=== PATIENT | male | born 1990 | race Caucasian/White ===

== ENCOUNTER 2017-07-16 08:55 | Observation (INO) | payer OTHER ==
[~2017-07-16] VITALS: Ht 177.8 cm; Wt 135.6 kg
[2017-07-16] MEDS ORDERED: SULF1TAB35 PO (09:26)
[2017-07-16] MEDS ORDERED: IBUP-30 PO (09:26)
[2017-07-16] MEDS ORDERED: LACTATED RINGERS 1,000 ML IV SCH (09:30)
[2017-07-16 09:34] LABS: MEAN PLATELET VOLUME 10.5 FL (7.4-10.4); RED BLOOD COUNT 5.24 10^6/uL (4.35-5.85); RED CELL DISTRIBUTION WIDTH 12.3 % (10.0-14.5); WHITE BLOOD COUNT 10.7 10^3/uL (4.3-11.0)
[2017-07-16] MEDS: fentaNYL INJECTION 100 MCG/2 ML AMP IVP PRN ×3 (09:47→17:21)
[2017-07-16 09:53] VITALS: BP 154/94
[2017-07-16] MEDS ORDERED: BUP/EPI 0.5% 1:200,000 (MARCAINE) 10ML VIAL IJ ONE ×2 (11:33→12:19)
[2017-07-16] MEDS ORDERED: BUPIVACAINE 0.5% 30 ML (SENSORCAINE) VIAL ONE (11:34)
[2017-07-16] MEDS ORDERED: BUPIVACAINE 0.25% 30 ML (SENSORCAINE) VIAL ONE (11:35)
[2017-07-16 12:00] VITALS: BP 162/86
--- NOTE | 2017-07-16 12:20 | Progress Note-Pre Operative ---
Pre-Operative Progress Note H&P Reviewed The H&P was reviewed, patient examined and no changes noted. Date Seen by Provider: Jul 16, 2017 Time Seen by Provider: 11:02 Date H&P Reviewed: Jul 16, 2017 Time H&P Reviewed: 12:20 Pre-Operative Diagnosis: pilonidal abscess NATALEE HUERTA MD Jul 16, 2017 12:20 pm
--- NOTE | 2017-07-16 12:20 | History & Physicial ---
History of Present Illness History of Present Illness Reason for visit/HPI pain and swelling around the cleft of 3 days' duration. Date of Admission Jul 16, 2017 at 8:55 am Date Seen by Provider: Jul 16, 2017 Time Seen by Provider: 11:05 I consulted on this patient on 07/16/17 12:18 Attending Physician Natalee Huerta MD Admitting [facility] Consult Allergies and Home Medications Allergies Coded Allergies: ketorolac (Unverified Allergy, Unknown, 01/21/16) levofloxacin (Unverified Allergy, Unknown, 01/21/16) ondansetron (Unverified Allergy, Unknown, 01/21/16) Home Medications Ibuprofen 200 Mg Tablet, 400-800 MG PO TID PRN for PAIN-MILD, (Reported) Sulfamethoxazole/Trimethoprim 1 Each Tablet, 1 TAB PO BID, (Reported) 10 DAY SUPPLY FILLED 07-14-17 Past [id number]-Lhwsnu Hx Patient Social History Marrital Status: single Employed/Student: employed Alcohol Use: Rarely Uses Number of Drinks Today: 0 Recreational Drug Use: No Smoking Status: Never a Smoker Physical Abuse Screen: No Sexual Abuse: No Recent Foreign Travel: No Contact w/other who traveled: No Recent Hopitalizations: No Recent Infectious Disease Expo: No Immunizations Up To Date Tetanus Booster (TDap): Unknown Seasonal Allergies Seasonal Allergies: No Surgeries Abdominal, Appendectomy, Orthopedic Respiratory No Cardiovascular No Neurological No Reproductive System Hx Reproductive Disorders: No Sexually Transmitted Disease: No HIV/AIDS: No Genitourinary No Gastrointestinal No Musculoskeletal No Endocrine History of Endocrine Disorders: No HEENT History of HEENT Disorders: No Loss of Vision: Denies Hearing Impairment: Denies Cancer No Psychosocial History of Psychiatric Problem: No Integumentary History of Skin or Integumenta: No Blood Transfusions History of Blood Disorders: No Adverse Reaction to a Blood Tr: No Constitutional: fever, malaise EENTM: no symptoms reported Respiratory: no symptoms reported Gastrointestinal: see HPI Genitourinary: no symptoms reported Musculoskeletal: no symptoms reported Skin: see HPI Psychiatric/Neurological: No Symptoms Reported Physical Exam Vital Signs Vital Sign - Last 12Hours 07/16/17 09:53 Temp 98.4 Pulse 87 Resp 20 B/P (MAP) 154/94 Pulse Ox 98 Capillary Refill : General Appearance: No Apparent Distress, Moderate Distress HEENT: Normal ENT Inspection Neck: Normal Inspection Respiratory: Lungs Clear Cardiovascular: Regular Rate, Rhythm Gastrointestinal: Non Tender, Soft Rectal: Deferred Back: Normal Inspection Extremity: Normal Inspection Neurologic/Psychiatric: Alert, Oriented x3 Skin: Warm/Dry Assessment/Plan Assessment and Plan young man with a pilonidal abscess. Offered incision and drainage under anesthetic. The potential for definitive surgery and the natural history of recurrence associated with the condition discussed; he seems to be in agreement. Problems: Clinical Quality Measures DVT/VTE Risk/Contraindication: Risk Factor Score Per Nursin RFS Level Per Nursing on Admit: 2=Moderate NATALEE HUERTA MD Jul 16, 2017 12:20 pm
[2017-07-16] MEDS ORDERED: fentaNYL INJECTION 100 MCG/2 ML AMP ONE ×2 (12:32→13:15)
[2017-07-16] MEDS ORDERED: SEVOFLURANE (ULTANE) 15 ML INHAL SOLN ONE (12:32)
[2017-07-16] MEDS ORDERED: MIDAZOLAM 2 MG/2 ML (VERSED) VIAL ONE (12:32)
[2017-07-16] MEDS ORDERED: proPOfol 200 MG/20 ML (DIPRIVAN) VIAL IV ONE (12:32)
[2017-07-16] MEDS ORDERED: LIDOCAINE PF 2% 5 ML (XYLOCAINE) VIAL ONE (12:32)
[2017-07-16] MEDS ORDERED: ROCURONIUM 50 MG/5 ML (ZEMURON) VIAL IV ONE (12:34)
[2017-07-16] MEDS ORDERED: LACTATED RINGERS 1,000 ML IV PRN (12:35)
[2017-07-16] MEDS ORDERED: morphine INJ 10 MG/ML 1ML (SYR OR VIAL) ONE (13:13)
[2017-07-16] MEDS ORDERED: MEPERIDINE (DEMEROL) INJ 50 MG/ML ONE (13:13)
--- NOTE | 2017-07-16 13:32 | Operative Report ---
Operative Report Date of Procedure/Surgery Jul 16, 2017 Surgeon (s) NATALEE HUERTA MD [employer] Shift Supervisor (s): not applicable Post-Operative Diagnosis same Procedure Performed incision and drainage of pilonidal abscess Description of Procedure Anesthesia Type: General Estimated blood loss (mL): minimal Specimen(s) collected/removed pus for culture. Pilonidal tissue for histology Description of the Procedure Indication for procedure: This young man presented with a pilonidal abscess requiring formal drainage under anesthetic. Informed consent was obtained after reviewing the operative details and highlighting the natural history of recurrence associated with the condition. Description of procedure: He was initially placed supine on the gurney and general anesthesia induced using an endotracheal tube. Subsequent leak, he was turned prone onto the operative table and his pressure areas were padded and protected. [place] [place] left was prepared and draped in the usual sterile manner. A 3 cm vertical incision was made and a large abscess evacuated. Possible sent for culture and sensitivity. Pilonidal tissue containing garrett of hair was excised and sent for histological examination. Hemostasis was achieved using cautery and the area irrigated with saline. A nonadherent dressing was then applied. He tolerated the procedure well, was turned supine before being extubated and taken to the recovery room in a stable condition. Findings of the Procedure see operative report Allergies and Home Medications Allergies Coded Allergies: ketorolac (Unverified Allergy, Unknown, 01/21/16) levofloxacin (Unverified Allergy, Unknown, 01/21/16) ondansetron (Unverified Allergy, Unknown, 01/21/16) Home Medications Ibuprofen 200 Mg Tablet, 400-800 MG PO TID PRN for PAIN-MILD, (Reported) Sulfamethoxazole/Trimethoprim 1 Each Tablet, 1 TAB PO BID, (Reported) 10 DAY SUPPLY FILLED 07-14-17 NATALEE HUERTA MD Jul 16, 2017 1:32 pm
[2017-07-16] MEDS ORDERED: HYDR-3820 PO (13:33)
--- NOTE | 2017-07-16 13:34 | Discharge Inst-Simple/Standard ---
Discharge Inst-Standard Discharge Medications New, Converted or Re-Newed RX: RX on Chart Patient Instructions/Follow Up Plan of Care/Instructions/FU: dressing change with maxi pad once a day. May shower. Follow-up with me in 2 weeks. Activity as Tolerated: Yes Discharge Diet: No Restrictions NATALEE HUERTA MD Jul 16, 2017 1:34 pm
[2017-07-16] MEDS ORDERED: morphine INJ 10 MG/ML 1ML (SYR OR VIAL) IVP PRN (14:00)
[2017-07-16] MEDS ORDERED: ceFAZolin 2 GM/50 ML NS 50 ML IV ONE (14:00)
[2017-07-16 14:57] VITALS: BP 129/62
[2017-07-16 16:00] VITALS: BP 136/77
[2017-07-16 17:45] VITALS: BP 136/77
== END 2017-07-16 17:45 | disposition home or self-care (01) ==
LOC: 4TH 08:55
PROVIDERS: ADMIT Surgery; ATTEND Surgery
DX: L05.01 Pilonidal cyst with abscess (principal)
CPT/HCPCS: 36415; 85027; 87070; 87075; 87081; 87205; 88304

== ENCOUNTER → 2022-04-13 | Outpatient (CLI) | payer SELFPAY ==
[~2022-04-13] MED LIST: ACHYD1T PO; IBUP-30 PO; SULF1TAB38 PO
[2022-04-13 13:22] LABS: SEMEN VOLUME 6.2 ML (1.5-5.0)
== END ==
LOC: LAB 11:46
PROVIDERS: ATTEND Obstetrics & Gynecology
DX: N46.9 Male infertility, unspecified (principal)
CPT/HCPCS: 89320